=== PATIENT | female | born 1960 | race Caucasian/White ===

== ENCOUNTER → 2020-08-30 | Outpatient (CLI) | payer OTHER ==
[~2020-08-30] MED LIST: ALDACTONE25 MG PO; BUMETANIDE0.5 MG PO; CARVEDILOL6.25 MG PO; CEFUROXIME500 MG PO; COREG 3.125M3.125 MG PO; DIOVAN80 MG PO; ECOTRIN81 MG PO; ENTRESTO 49 MG1 EACH PO; LEVAQUIN500 MG PO; MOBIC15 MG PO; NEURONTIN 300300 MG PO; NITROSTAT 0.40.4 MG SL; PROTONIX40 MG PO; SERTRALINE HCL100 MG PO; TYLENOL W/CODEIN1 E1 PO; VITAMIN D PO; VITAMIN D250000 UNIT PO; ZOLOFT50 MG PO
== END ==
LOC: HEART 5 10:00
DX: I11.0 Hypertensive heart disease with heart failure (principal); I50.9 Heart failure, unspecified; R06.02 Shortness of breath; R05 Cough; R07.9 Chest pain, unspecified; I07.1 Rheumatic tricuspid insufficiency; R93.1 Abnormal findings on diagnostic imaging of heart and coronary circulation; Z95.0 Presence of cardiac pacemaker
CPT/HCPCS: 71046; 93306

== ENCOUNTER 2021-06-09 14:44 | Emergency (ER) | payer OTHER ==
[2021-06-09 15:57] LABS: RED BLOOD COUNT 4.72 M/UL (4.00-5.10); WHITE BLOOD COUNT 7.1 K/UL (4.5-11.0)
[2021-06-09 16:13] LABS: BUN/CREATININE RATIO 13 (0-10)
== END 2021-06-09 21:35 | disposition home or self-care (01) ==
LOC: ER1 14:44
PROVIDERS: Emergency Medicine
DX: R10.31 Right lower quadrant pain (principal); R11.2 Nausea with vomiting, unspecified; K57.90 Diverticulosis of intestine, part unspecified, without perforation or abscess without bleeding; I10 Essential (primary) hypertension; Z90.710 Acquired absence of both cervix and uterus; Z95.0 Presence of cardiac pacemaker
CPT/HCPCS: 80053; 81001; 83690; 85025; 96374; 96375; 99284; J2270; J2405; Q9967